=== PATIENT | female | born 1945 | race Caucasian/White ===

== ENCOUNTER 2024-09-16 08:41 | Emergency (ER) | payer MEDICARE, SELFPAY ==
[2024-09-16 08:45] VITALS: BP 149/81
--- NOTE | 2024-09-16 09:45 | ED.MUSCINJ ---
HPI-Injury
General
Chief Complaint: Musculo-Skeletal Complaint
Source: patient
Exam Limitations: none
Time Seen by Provider: 09/16/24 09:28
History of Present Illness-Injury
Initial Injury comments:
79-year-old female presents complaining of significant neck pain that radiates up into the base of her head that has been progressively getting worse over the past 3 days. There is no associated arm pain numbness or tingling no chest pain or
shortness of breath. No recent injury. She denies visual changes or dizziness. She denies headache. She does not take any medications regularly. She tried [id number] medication at home as well as a leftover pain medicine without relief.
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
Past History
Past History
ED Past Medical History: None and Other (Fracture of both wrists and both forearms in the past [address] Whiteside is her ortho doc.)
Social History
Personal:
Living: with family
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
Phy Exam
Physical Exam
Physical Exam:
General: Well-appearing female no acute respiratory distress
HEENT: Normocephalic atraumatic pupils equal round reactive to light
Heart: Regular rate and rhythm lungs: Clear no wheeze
Musculoskeletal exam: The patient is tender over the midline of the lower cervical spine good range of motion all extremities
Neurologic exam: Alert and oriented good strength to the upper lower extremities. Conversing appropriately normal gait
Injury Course
Orders/Labs/Results
Orders:
Orders
09/16/24 09:38
CT Cervical Spine W/o Iv Contr Urgent
Comment:
Reason For Exam: neck pain
Ketorolac [Toradol] 15 mg IV NOW STA
diazePAM [Valium Injection] 2 mg IV NOW STA
MDM/Problems Addressed
Differential Diagnosis Includes:
Significant neck pain. Consider muscular strain versus degenerative disc disease. No neurologic deficit or symptoms consistent with radiculopathy or cauda equina. No fever to suggest infectious source.
Imaging ordered treat symptomatically with Toradol and Valium
*Critical Care Note
Total Time (30-74mins, 75-104mins- exclusive of procedures): Not Applicable
Update Note
Update Note:
CT shows degenerative changes and straightening of the normal curve. Suspect neck pain related to degenerative change and muscle spasm. Prescribed prednisone and Valium. Recommend she follow-up with her clerical support specialist. She denies a ripping or
tearing sensation. Symptoms are intermittent. Vital signs stable. Do not suspect dissection
ED Attending Note
-
Portions of this chart may have been created with voice recognition software.� Occasional wrong word or��sound alike� substitutions may have occurred due to the inherent limitations of voice recognition software.
Discharge Plan
Departure
Patient Disposition: Home (Routine Discharge)
Date of Disposition: 09/16/24
Time of Disposition: 12:15
Patient with high blood pressure during this ER visit?: No
Discharge Problem:
Neck pain
Instructions: Muscle and Bone Pain (DC)
Prescriptions:
New
prednisone 10 mg Tablet
See Rx Instructions .ROUTE .COMPLEX Qty: 30 0RF
Rx Instructions:
Take By Mouth:
40 mg daily x3 days, 30 mg daily x3 days,
20 mg daily x3 days, 10 mg daily x3 days.
diazepam [Valium] 5 mg tablet
5 mg PO BID PRN (Reason: muscle spasm) Qty: 14 0RF
No Action
Paxlovid 300 mg (150 mg x 2)-100 mg Tablets,Dose Pack
1 ea PO BID Qty: 1 0RF
cephalexin 500 mg capsule
500 mg PO BID Qty: 10 0RF
Referrals:
NONE,* [Family Provider] -
Activity Restrictions/Additional Instructions:
Use prescribed medicine as directed. Apply warm compresses. Follow-up with your clerical support specialist. Return if worse otherwise
Interventions
Interventions:
*Risk Screen - Suicide Last Done: 09/16/24 08:48
*Neglect/Abuse Screening Last Done: 09/16/24 08:48
ED-Musculoskeletal Assessment Last Done: 09/16/24 09:54
Discharge Date and Time
Print Language: [id number]
[2024-09-16] MEDS: VALIUM INJECTION 2 MG IV (09:49)
[2024-09-16] MEDS: TORADOL 15 MG IV (09:49)
[2024-09-16 12:15] VITALS: BP 133/75
== END 2024-09-16 12:34 | disposition home or self-care (01) ==
LOC: EMR 08:41
PROVIDERS: EMERGENCY PHYSICIAN Student in an Organized Health Care Education/Training Program
DX: M54.2 Cervicalgia (principal); M62.838 Other muscle spasm
CPT/HCPCS: 96374; 96375; 99284; 72125